=== PATIENT | female | born 1985 | race Caucasian/White ===

== ENCOUNTER 2020-08-27 06:12 | Day surgery (SDC) | payer OTHER ==
[2020-08-27] MEDS ORDERED: Lactated Ringers 1,000 ML IV SCH (07:00)
[2020-08-27] MEDS ORDERED: CLINDAMYCIN-D5W 900 MG/50 ML*** 900 MG/50 ML BAG IV SCH (07:00)
[2020-08-27] MEDS ORDERED: Sensorcaine 0.25% 10 ML ONE (09:50)
[2020-08-27] MEDS ORDERED: Lactated Ringers 1,000 ML IV ONE (09:51)
[2020-08-27] MEDS ORDERED: DIPRIVAN 200 MG/20 ML IV ONE (10:07)
[2020-08-27] MEDS ORDERED: Versed 2 MG/2 ML Injection ONE (10:07)
[2020-08-27] MEDS ORDERED: SUBLIMAZE 100 MCG/2 ML ONE ×2 (10:09→11:29)
[2020-08-27] MEDS ORDERED: Zemuron 100 MG/10 ML ONE (10:09)
[2020-08-27] MEDS ORDERED: Decadron 4 MG INJ ONE (10:10)
[2020-08-27] MEDS ORDERED: Zofran 4 MG/2 ML VIAL ONE (10:10)
[2020-08-27] MEDS ORDERED: TORAdol 30 mg Injection ONE (10:10)
[2020-08-27] MEDS ORDERED: BRIDION 200MG/2ML IV ONE (10:24)
[2020-08-27 12:34] VITALS: BP 151/87; PULSE 89; O2SAT 99
[2020-08-27 12:50] LABS: Appearance CLEAR (CLEAR); Bilirubin NEGATIVE (NEGATIVE); Blood SMALL Ery/ul (0-5); Glucose NEGATIVE (NEGATIVE); Ketones NEGATIVE (NEGATIVE); Leukocyte Esterase NEGATIVE (NEGATIVE); Mucus SLIGHT /HPF (NEGATIVE); Nitrite NEGATIVE (NEGATIVE); Protein,Urine Dip NEGATIVE (Negative); Specific Gravity 1.013 (1.005-1.025); Urobilinogen NEGATIVE mg/dL (0-1)
[2020-08-27 13:39] LABS: Bacteria NONE SEEN /HPF (NEGATIVE)
--- NOTE | 2020-08-28 10:10 | OP ---
SURGERY DATE: 08/27/2020 SURGERY TIME: 1004 PREOPERATIVE DIAGNOSIS: 1. MULTIPARITY DESIRING TUBAL STERILIZATION. 2. ABNORMAL UTERINE BLEEDING. POSTOPERATIVE DIAGNOSIS: 1. MULTIPARITY DESIRING TUBAL STERILIZATION. 2. ABNORMAL UTERINE BLEEDING. PROCEDURE: 1. Laparoscopic tubal sterilization via Falope ring application 2. Hysteroscopy D&C with NovaSure ablation. SURGEON: Dr. Zi Stroud. CORE STRIPPER: Gamal Savage extractions technician. ANESTHESIA: General. ESTIMATED BLOOD LOSS: Minimal. COMPLICATIONS: None. FINDINGS: The risks, benefits, indications, and alternatives of the procedure were reviewed with the patient prior to the procedure. Patient understood the risk of infection, bleeding, bowel injury, bladder injury, ureteral injury, uterine perforation, pelvic infection, thromboembolic disorder, ectopic that may be associated with this procedure. All forms of control were discussed with the patient prior to the procedure. DESCRIPTION OF PROCEDURE: At this point, the patient was taken to the OR, given general sedation, placed in the dorsal lithotomy position, prepped and draped in the usual sterile fashion. A weighted speculum was then placed in the patient's vagina and the anterior lip of the cervix was grasped with the single toothed tenaculum. Uterine manipulator was then placed into the endocervical canal as a means to manipulate the uterus. Attention was then turned to the patient's abdomen where a 5 mm skin incision was made in the umbilical fold. 5 mm trocar and sleeve were advanced under direct visualization where pneumoperitoneum was obtained with 4 liters of CO2 gas. Visualization of the abdominopelvic region appeared to be within normal limits and at this point, the uterine manipulator was used to elevate the uterus and an additional left lower quadrant incision was made where an 8 mm incision was made and 8 mm trocar and sleeve were advanced under direct visualization for application of the Falope ring applicator. From this point, the right fallopian tube was identified and the Falope ring applicator was placed on approximately 3 or 4 cm in the corneal region on the isthmic region where it was grasped and was brought to a knuckle and the Falope ring was placed without complication. The same procedure was performed on the left fallopian tube approximately 4 cm from the corneal region. The fallopian tube was grasped with Falope ring applicator, was lifted, and a knuckle of tube was then placed under the Falope ring and was done so without complication. Hemostasis was obtained. From this point, all instruments were removed from the patient's abdominal region and incisions were closed with 4-0 Monocryl suture. Attention was then turned to the pelvic region where a weighted speculum was then placed into the patient's vagina. The anterior lip of the cervix was grasped with a single toothed tenaculum and endocervical dilators were advanced through the endocervical canal as a means to dilate the cervix. A 5 mm hysteroscope was then placed into the fundal region of the uterus where visualization revealed no gross abnormalities. From this point, a curette was then placed in the fundus of the uterus and curettage was performed in all quadrants of the uterus retrieving a moderate amount of endometrial tissue. From this point, the curette was removed and the NovaSure instrument was then placed where it was measured at 6.5 cm in length and taken to the fundal region and retracted approximately 1 cm and the width was noted to be 4.6 cm where it was engaged. The machine for NovaSure was turned on for an ablated time of 1 minute, 4 seconds. After completion of the ablation, the NovaSure instrument was disengaged and removed from the uterine cavity without complication. From this point, all instruments were removed from the patient's vaginal region. The patient was then taken out of the dorsal lithotomy position, was taken out of anesthesia, and was then taken to the recovery room in stable condition. All instruments and laps were accounted for X 2.
== END 2020-08-27 12:45 | disposition home or self-care (01) ==
LOC: SDC 06:12
PROVIDERS: ATTEND Obstetrics & Gynecology
DX: Z30.2 Encounter for sterilization (principal); N93.9 Abnormal uterine and vaginal bleeding, unspecified
CPT/HCPCS: 58558; 58671; 81001; 84703; 87086; J1100; J1885; J2250; J2405; J2704; J3010